=== PATIENT | male | born 1955 | race Caucasian/White ===

== ENCOUNTER → 2019-09-07 | Emergency (ER) | payer MEDICAID ==
[~2019-09-07] VITALS: Ht 160 cm; Wt 38.6 kg
[~2019-09-07] MED LIST: CELE-193 PO; LISI10TA4 PO; PANT-47 PO; aspirin 325mg tablet PO ONE; aspirin 81mg tab.chew PO ONE; famotidine 20mg tablet PO ONE; mag hydrox/Alum hydrox/simeth 30ml oral suspension PO ONE
[2019-09-07 20:50] LABS: EOSINOPHILS % (AUTO) 0.3 % (0-6); LYMPHOCYTES # (AUTO) 0.7 X10'3 (1.1-4.8); MEAN CORPUSCULAR HEMOGLOBIN 30.6 PG (27.0-31.0); MEAN CORPUSCULAR HGB CONC 34.6 g/dL (33.0-36.5); MONOCYTES # (AUTO) 0.9 X10'3 (0-0.9)
[2019-09-07 20:52] LABS: BASOPHILS % (AUTO) 0.7 % (0-1); HEMATOCRIT 45.8 % (42.0-52.0); HEMOGLOBIN 15.8 g/dl (14.0-17.9); LYMPHOCYTES % (AUTO) 20.5 % (21-51); MEAN CORPUSCULAR VOLUME 88.6 FL (78-98); MEAN PLATELET VOLUME 8.3 FL (7.4-10.4); NEUTROPHILS % (AUTO) 54.5 % (42-75); PLATELET COUNT 195 X10'3 (140-440); RED BLOOD COUNT 5.17 X10'6 (4.70-6.10); WHITE BLOOD COUNT 3.6 X10'3 (4.5-11.0)
[2019-09-07 21:07] LABS: ALANINE AMINOTRANSFERASE 33 U/L (12-78); ALBUMIN 4.4 G/DL (3.4-5.0); ALBUMIN/GLOBULIN RATIO 1.3 (1.1-1.5); ALKALINE PHOSPHATASE 105 IU/L (46-116); ANION GAP 9 (8-16); ASPARTATE AMINO TRANSFERASE 35 U/L (10-37); BILIRUBIN,TOTAL 0.7 MG/DL (0.1-1.0); BLOOD UREA NITROGEN 13 MG/DL (7-18); CALCIUM 8.8 MG/DL (8.5-10.1); CHLORIDE 103 MMOL/L (99-107); CREATININE 1.18 MG/DL (0.60-1.10); GLUCOSE 109 MG/DL (70-104); POTASSIUM 3.7 MMOL/L (3.5-5.1); SODIUM 139 MMOL/L (135-145); TOTAL CARBON DIOXIDE 26.6 MMOL/L (24-32); TOTAL PROTEIN 7.9 G/DL (6.4-8.2); eGFR 63 ML/MIN
[2019-09-07 21:18] LABS: PLATELET ESTIMATE NORMAL; TOTAL CELLS COUNTED 100
[2019-09-07 21:51] VITALS: BP 156/46
== END | disposition home or self-care (01) ==
LOC: ER 20:22
DX: K29.70 Gastritis, unspecified, without bleeding (principal); I50.9 Heart failure, unspecified; E78.00 Pure hypercholesterolemia, unspecified; I11.0 Hypertensive heart disease with heart failure; F17.200 Nicotine dependence, unspecified, uncomplicated; Z79.2 Long term (current) use of antibiotics; Z79.899 Other long term (current) drug therapy
CPT/HCPCS: 36415; 71045; 80053; 83880; 84484; 85025; 93005; 99285

== ENCOUNTER 2021-02-10 05:10 | Day surgery (SDC) | payer MEDICAID ==
[2021-02-02 14:58] LABS: BASOPHILS % (AUTO) 0.6 % (0-1); EOSINOPHILS # (AUTO) 0.1 X10'3 (0-0.9); EOSINOPHILS % (AUTO) 3.2 % (0-6); MEAN CORPUSCULAR HEMOGLOBIN 28.9 PG (27.0-31.0); MEAN CORPUSCULAR HGB CONC 33.5 g/dL (33.0-36.5); MEAN CORPUSCULAR VOLUME 86.2 FL (78-98); MEAN PLATELET VOLUME 8.4 FL (7.4-10.4); MONOCYTES # (AUTO) 0.4 X10'3 (0-0.9); NEUTROPHILS # (AUTO) 1.7 X10'3 (1.8-7.7); NEUTROPHILS % (AUTO) 40.2 % (42-75); PRE OP HEMATOCRIT 48.7 % (42.0-52.0); PRE OP HEMOGLOBIN 16.3 g/dL (14.0-17.9); PRE OP PLATELET COUNT 255 X10'3 (140-440); RED BLOOD COUNT 5.64 X10'6 (4.70-6.10)
[2021-02-02 15:20] LABS: ALBUMIN 4.1 G/DL (3.4-5.0); ALBUMIN/GLOBULIN RATIO 1.1 (1.1-1.5); ALKALINE PHOSPHATASE 104 IU/L (46-116); BLOOD UREA NITROGEN 14 MG/DL (7-18); BUN/CREATININE RATIO 15.9 (5.4-32.0); CALCIUM 9.1 MG/DL (8.5-10.1); CHLORIDE 102 MMOL/L (99-107); CREATININE 0.88 MG/DL (0.60-1.10); PRE OP ALT 39 U/L (30-65); PRE OP ANION GAP 12 (8-16); PRE OP AST 37 U/L (10-37); PRE OP BILIRUB, TOTAL 0.7 MG/DL (0.0-1.0); PRE OP GLUCOSE 115 MG/DL (70-104); PRE OP POTASSIUM 4.7 MMOL/L (3.4-5.1); PRE OP SODIUM 138 MMOL/L (135-145); eGFR 87 ML/MIN
[~2021-02-10] VITALS: Ht 160 cm; Wt 89.9 kg
[2021-02-10] VITALS (8 sets, daily range): BP systolic 121–155; BP diastolic 83–99
[~2021-02-10 05:10] MED LIST changes: +AMLO10TA13 PO; +ASPI-500 PO; +ATOR40TA72 PO; -CELE-193 PO; +FURO40TA4 PO; +LISI10TA27 PO; -LISI10TA4 PO; -PANT-47 PO; -aspirin 325mg tablet PO ONE; -aspirin 81mg tab.chew PO ONE; -famotidine 20mg tablet PO ONE; -mag hydrox/Alum hydrox/simeth 30ml oral suspension PO ONE; +ringers solution, lacted 1,000 ML IV SCH
[2021-02-10] MEDS ORDERED: vancomycin 1,500 MG in NS 300ml IV soln IV ONE (05:30)
[2021-02-10] MEDS ORDERED: cefazolin/dext.iso 2gm/100ml IV ONE (05:30)
[2021-02-10] MEDS ORDERED: famotidine 20mg tablet PO ONE (05:30)
[2021-02-10] MEDS ORDERED: triamcinolone acetonide 40mg/ml inj ONE (06:46)
[2021-02-10] MEDS ORDERED: BUPIVAcaine/PF 2.5 mg/ml (0.25%) 30ml vial ONE (06:46)
[2021-02-10] MEDS ORDERED: sevoflurane 250ml liquid IH ONE (07:07)
[2021-02-10] MEDS ORDERED: midazolam 1 mg/ML 2ml injection ONE (07:14)
[2021-02-10] MEDS ORDERED: fentaNYL/PF 50MCG/1 ML 2ML syringe ONE (07:14)
[2021-02-10] MEDS ORDERED: etomidate 2mg/ml inj. ONE (07:15)
[2021-02-10] MEDS ORDERED: albumin (human) 25% 100ml IV 100 ML IV ONE (08:05)
[2021-02-10] MEDS ORDERED: acetaminophen 1,000mg/100ml IV 100 ML IV ONE (08:05)
[2021-02-10] MEDS ORDERED: ketorolac trometh. 30mg/ml inj. ONE (08:06)
[2021-02-10] MEDS ORDERED: ondansetron/PF 4mg/2ml inj ONE (08:07)
[2021-02-10] MEDS ORDERED: dexamethasone sod phosphate 4mg/ml inj. ONE (08:07)
[2021-02-10] MEDS ORDERED: ringers solution, lacted 1,000 ML IV SCH (08:10)
[2021-02-10] MEDS ORDERED: morphine 2 MG/ML inj. syringe IV PRN (08:10)
[2021-02-10] MEDS ORDERED: morphine 4 MG/ML inj SYRINge IV PRN (08:10)
[2021-02-10] MEDS ORDERED: fentaNYL/PF 50MCG/1 ML 2ML syringe IV PRN ×2 (08:10)
[2021-02-10] MEDS ORDERED: enalaprilat dihydrate 2.5mg/2ml vial IV PRN (08:10)
[2021-02-10] MEDS ORDERED: hydrALAZINE 20mg/ml inj. IV PRN (08:10)
[2021-02-10] MEDS ORDERED: ondansetron/PF 4mg/2ml inj IV PRN (08:10)
[2021-02-10] MEDS ORDERED: labetalol 20mg/4ml (5mg/ml) syringe IV ONE (08:55)
--- NOTE | 2021-02-10 09:14 | NUR ---
Received from OR via [facility] , accompanied by Anesthesiologist SULY and report given by Anesthesiolgist. PATIENT WITH 20G PIV IN LEFT UE RUNNING LR AT 100. BILATERAL KNEES WRAPPPED WITH BIAS DRESSINGS. + DPS BILATERALLY. Addendum: 02/10/21 at 0935 by Willie Ritchie RN, RN Amended: Links added.
--- NOTE | 2021-02-10 10:14 | NUR ---
ALL DISCHARGE CRITERIA HAS BEEN MET. VSS, PAIN AT A TOLERABLE LEVEL, VOIDING AND ABLE TO SAFELY AMBULATE AND TRANSFER SELF. IV TAKEN OUT WITHOUT ANY COMPLICATIONS. ALL DISCHARGE INSTRUCTIONS COVERED WITH PATIENT AND ALL QUESTIONS ANSWERED. PATIENT TAKEN OUT VIA WHEELCHAIR TO PERSONAL VEHICLE WHERE FAMILY/FRIEND DROVE PATIENT HOME. BILAT KNEE DRESSINGS CDI. STOOD AND TOOK STEPS SAFELY TO WHEELCHAIR AND INTO VEHICLE. SECURED AND TAKEN HOME BY SPOUSE. EMPHASIZED TO KEEP LE'S ELEVATED AND TO USE ICE FOR PAIN CONTROL. Addendum: 02/10/21 at 1046 by Willie Ritchie RN, RN Amended: Links added.
== END 2021-02-10 10:14 | disposition home or self-care (01) ==
LOC: PAS 05:10
PROVIDERS: ATTEND Orthopaedic Surgery
DX: S83.271A Complex tear of lateral meniscus, current injury, right knee, initial encounter (principal); S83.231A Complex tear of medial meniscus, current injury, right knee, initial encounter; S83.272A Complex tear of lateral meniscus, current injury, left knee, initial encounter; S83.232A Complex tear of medial meniscus, current injury, left knee, initial encounter; S83.512A Sprain of anterior cruciate ligament of left knee, initial encounter; M94.261 Chondromalacia, right knee; M94.262 Chondromalacia, left knee; E78.5 Hyperlipidemia, unspecified; I25.10 Atherosclerotic heart disease of native coronary artery without angina pectoris; M17.0 Bilateral primary osteoarthritis of knee; H54.7 Unspecified visual loss; J44.9 Chronic obstructive pulmonary disease, unspecified; I25.2 Old myocardial infarction; I11.0 Hypertensive heart disease with heart failure; I50.9 Heart failure, unspecified; E66.01 Morbid (severe) obesity due to excess calories; Z68.35 Body mass index [BMI] 35.0-35.9, adult; Z79.82 Long term (current) use of aspirin; Z79.899 Other long term (current) drug therapy; Z98.890 Other specified postprocedural states; Z86.73 Personal history of transient ischemic attack (TIA), and cerebral infarction without residual deficits; Z87.891 Personal history of nicotine dependence; Z83.3 Family history of diabetes mellitus; Z82.49 Family history of ischemic heart disease and other diseases of the circulatory system; X58.XXXA Exposure to other specified factors, initial encounter; Y92.89 Other specified places as the place of occurrence of the external cause; Y99.8 Other external cause status; Y93.89 Activity, other specified
CPT/HCPCS: 29873; 29879; 29880; 36415; 80053; 82948; 85025; 93005; J0131; J1100; J1885; J2250; J2405; J3010; J3301; J3370; J3490; J7040; P9047; A4215; A4618; A6250; A6449; A7000; J7120

== ENCOUNTER 2021-02-13 23:26 | Emergency (ER) | payer MEDICAID ==
[~2021-02-13] VITALS: Ht 160 cm; Wt 88.2 kg
[~2021-02-13 23:26] MED LIST changes: -ringers solution, lacted 1,000 ML IV SCH
[2021-02-13 23:52] VITALS: BP 169/80
== END 2021-02-14 08:48 | disposition left against medical advice (07) ==
LOC: ER 23:27
DX: M25.561 Pain in right knee (principal); Z53.21 Procedure and treatment not carried out due to patient leaving prior to being seen by health care provider

== ENCOUNTER 2023-04-14 19:39 | Emergency (ER) | payer MEDICARE, MEDICAID ==
[~2023-04-14] VITALS: Ht 160 cm; Wt 170.0 kg
[2023-04-14 19:43] VITALS: PULSE 117; RESP 16; TEMP 98; O2SAT 96
[2023-04-14 20:17] VITALS: BP 163/96
== END 2023-04-14 20:39 ==
LOC: ER 19:39
DX: I11.0 Hypertensive heart disease with heart failure (principal); E78.00 Pure hypercholesterolemia, unspecified
CPT/HCPCS: 99283